=== PATIENT | male | born 1975 | race Caucasian/White ===

== ENCOUNTER 2019-12-31 06:15 | Day surgery (SDC) | payer OTHER, SELFPAY ==
[~2019-12-31] VITALS: Ht 172.7 cm; Wt 140.6 kg
[2019-12-31] MEDS ORDERED: LIDOCAINE 2% 100 MG/5 ML UJET TP ONE (07:46)
[2019-12-31] MEDS ORDERED: fentaNYL citrate 0.05 MG/ML VIAL ONE (07:46)
[2019-12-31] MEDS ORDERED: MIDAZOLAM 2 MG/2 ML VIAL ONE (07:46)
[2019-12-31] MEDS ORDERED: KETOROLAC 60 MG/2 ML VIAL IM ONE (07:51)
[2020-01-04] MEDS ORDERED: KETOROLAC 30 MG/ML VIAL IVP SCH (13:15)
== END 2019-12-31 09:00 | disposition home or self-care (01) ==
LOC: MDS 06:15 → EDUNIT# 06:15 → MMU 06:16 → MDS 09:00
PROVIDERS: ATTEND Internal Medicine Gastroenterology
DX: K62.5 Hemorrhage of anus and rectum (principal); K64.8 Other hemorrhoids; E66.01 Morbid (severe) obesity due to excess calories; Z68.45 Body mass index [BMI] 70 or greater, adult; Z88.0 Allergy status to penicillin; Z20.828 Contact with and (suspected) exposure to other viral communicable diseases
CPT/HCPCS: 88305; J1885; J2250; J3010; U0003